=== PATIENT | male | born 1980 | race Two or more races ===

== ENCOUNTER → 2017-12-06 | Outpatient (CLI) | payer OTHER | END | disposition home or self-care (01) | LOC: US 07:15 | DX: K76.89 Other specified diseases of liver (principal) | CPT/HCPCS: 76700 ==

== ENCOUNTER 2018-07-30 11:29 | Emergency (ER) | payer OTHER ==
[~2018-07-30] VITALS: Ht 170.2 cm; Wt 83.0 kg
[2018-07-30] MEDS ORDERED: ACETAMINOPHEN 500 MG TABLET PO ONE (12:30)
[2018-07-30] MEDS ORDERED: ONDANSETRON ODT 4 MG TAB.RAPDIS. PO ONE (12:30)
[2018-07-30] MEDS ORDERED: IV NORMAL SALINE 1000ML BAG 1,000 ML IV ONE (12:30)
[2018-07-30 12:48] LABS: BILIRUBIN,URINE NEGATIVE (NEG); CLARITY,URINE CLEAR; COLOR,URINE YELLOW; NITRITE,URINE NEGATIVE (NEG); PROTEIN,URINE NEGATIVE (NEG-TRACE); UROBILINOGEN,URINE 0.2 mg/dL (0.2 mg/dL)
[2018-07-30 12:55] LABS: SQUAMOUS EPITHELIAL CELL,UR OCC /LPF
[2018-07-30 12:56] LABS: BACTERIA,URINE 0 /HPF (0-FEW); RBC,URINE 0 /HPF (0-2); WBC,URINE 0 /HPF (0-4)
[2018-07-30 13:00] LABS: BASO % 1 % (0-3); EOS % 0 % (0-3); HEMATOCRIT 43.5 % (39.0-53.0); HEMOGLOBIN 15.3 g/dL (13.0-17.5); LYMPH % 25 % (24-48); MEAN CORPUSCULAR HEMOGLOBIN 31 pg (25-35); MEAN CORPUSCULAR HGB CONC 35 g/dL (31-37); MEAN CORPUSCULAR VOLUME 87 fL (79-100); MONO # 0.9 x10^3/uL (0.0-1.1); MONO % 22 % (0-9); NEUT % 52 % (31-73); PLATELET COUNT 179 x10^3/uL (140-400); RED CELL DISTRIBUTION WIDTH 12.3 % (11.5-14.5); WHITE BLOOD COUNT 3.9 x10^3/uL (4.0-11.0)
[2018-07-30 13:12] LABS: CALCIUM 9.2 mg/dL (8.5-10.1); CREATININE 0.9 mg/dL (0.7-1.3); GFR 94.4; POTASSIUM 3.8 mmol/L (3.5-5.1)
[2018-07-30 13:18] LABS: ALBUMIN 4.1 g/dL (3.4-5.0); ALBUMIN/GLOBULIN RATIO 1.1 (1.0-1.7); TOTAL PROTEIN 7.9 g/dL (6.4-8.2)
--- NOTE | 2018-07-30 13:19 | RAD ---
Chest, PA and Lateral: Technique: PA and lateral views of the chest were obtained. History: Fever, cough. Comparison: None. Findings: The heart size grossly appears unremarkable.Mild prominent bibasilar interstitial lung markings. No evidence of pleural effusion. Mild degenerative changes thoracic spine. IMPRESSION: Mild prominent bibasilar interstitial lung markings could be mild bronchitis. Electronically signed by: Kane Martin MD (07/30/2018 1:15 PM) [id number]
[2018-07-30 13:27] LABS: % ATYL 9 % (0-0); % BANDS 12 % (0-9); % LYMPHS 19 % (24-48); % MONOS 22 % (0-10); % SEGS 38 % (35-66)
[2018-07-30 13:42] VITALS: BP 150/82
[2018-07-30] MEDS ORDERED: ACETAMINOPHEN 650 MG SUPP.RECT. PR ONE (13:45)
--- NOTE | 2018-07-30 13:59 | PHYS DOC ---
Past Medical History Past Medical History: Other Additional Past Medical Histor: "traumatic brain injury from " Alcohol Use: None Drug Use: None Adult General Chief Complaint Chief Complaint: NAUSEA/VOMITING/DIARRHA HPI HPI Patient is a 38 year old male who presents with decreased appetite, weakness, fever, vomiting since yesterday at 6 AM. Patient's caregiver stay the patient has not vomited today. Patient has a slight fever at 100.2 in the ED. Patient's last Tylenol was at 0700 today. Patient denies any throat pain and has not had any diarrhea. Patient has caregiver mother at bedside. Patient is nonverbal and is a red brain injury patient. Review of Systems Review of Systems Constitutional: Fever and chills [] Eyes: Denies change in visual acuity, redness, or eye pain [] HENT: Denies nasal congestion or sore throat [] Respiratory: Cough. Denies shortness of breath [] Cardiovascular: No additional information not addressed in HPI [] GI: Denies abdominal pain. Nausea and vomiting. Denies bloody stools or diarrhea [] : Denies dysuria or hematuria [] Musculoskeletal: Denies back pain or joint pain [] Integument: Denies rash or skin lesions [] Neurologic: Denies headache, focal weakness or sensory changes [] Endocrine: Denies polyuria or polydipsia [] All other systems were reviewed and found to be within normal limits, except as documented in this note. Current Medications Current Medications Current Medications Medications (Trade) Dose Ordered Sig/Jaycob Start Time Stop Time Status Last Admin Dose Admin Acetaminophen (Tylenol Supp) 650 mg 1X ONCE 07/30/18 13:45 07/30/18 13:46 DC 07/30/18 13:55 650 MG Acetaminophen (Tylenol) 1,000 mg 1X ONCE 07/30/18 12:30 07/30/18 12:32 DC 07/30/18 13:20 1,000 MG Ondansetron HCl (Zofran Odt) 4 mg 1X ONCE 07/30/18 12:30 07/30/18 12:32 DC 07/30/18 12:57 4 MG Sodium Chloride 1,000 ml @ 1,000 mls/hr 1X ONCE 07/30/18 12:30 07/30/18 13:29 DC 07/30/18 12:56 1,000 MLS/HR Allergies Allergies Allergies Coded Allergies Type Severity Reaction Last Updated Verified Penicillins Allergy Unknown unknown 07/30/18 Yes Physical Exam Physical Exam Constitutional: Well developed, well nourished, no acute distress, non-toxic appearance. [] HENT: Normocephalic, atraumatic, bilateral external ears normal, oropharynx moist, no oral exudates, nose normal. [] Eyes: PERRLA, EOMI, conjunctiva normal, no discharge. [] Neck: Normal range of motion, no tenderness, supple, no stridor. [] Cardiovascular:Heart rate regular rhythm, no murmur [] Lungs & Thorax: Bilateral breath sounds clear to auscultation [] Abdomen: Bowel sounds normal, soft, no tenderness, no masses, no pulsatile masses. [] Skin: Warm, dry, no erythema, no rash. [] Back: No tenderness, no CVA tenderness. [] Extremities: No tenderness, no cyanosis, no clubbing, ROM intact, no edema. [] Neurologic: Alert and oriented X 3, normal motor function, normal sensory function, no focal deficits noted. [] Psychologic: Affect normal, judgement normal, mood normal. [] Current Patient Data Vital Signs Vital Signs Date Time Temp Pulse Resp B/P (MAP) Pulse Ox O2 Delivery O2 Flow Rate FiO2 07/30/18 13:42 71 150/82 (104) 97 Room Air 07/30/18 12:12 16 07/30/18 11:30 100.3 100.3 Lab Values Laboratory Tests Test 07/30/18 12:30 07/30/18 12:49 Urine Collection Type Unknown Urine Color Yellow Urine Clarity Clear Urine pH 6.0 Urine Specific [place] <=1.005 Urine Protein Negative mg/dL (NEG-TRACE) Urine Glucose (UA) Negative mg/dL (NEG) Urine Ketones (Stick) Negative mg/dL (NEG) Urine Blood Negative (NEG) Urine Nitrite Negative (NEG) Urine Bilirubin Negative (NEG) Urine Urobilinogen Dipstick 0.2 mg/dL (0.2 mg/dL) Urine Leukocyte Esterase Negative (NEG) Urine RBC 0 /HPF (0-2) Urine WBC 0 /HPF (0-4) Urine Squamous Epithelial Cells Occ /LPF Urine Bacteria 0 /HPF (0-FEW) White Blood Count 3.9 x10^3/uL (4.0-11.0) L Red Blood Count 5.00 x10^6/uL (4.30-5.70) Hemoglobin 15.3 g/dL (13.0-17.5) Hematocrit 43.5 % (39.0-53.0) Mean Corpuscular Volume 87 fL (79-100) Mean Corpuscular Hemoglobin 31 pg (25-35) Mean Corpuscular Hemoglobin Concent 35 g/dL (31-37) Red Cell Distribution Width 12.3 % (11.5-14.5) Platelet Count 179 x10^3/uL (140-400) Neutrophils (%) (Auto) 52 % (31-73) Lymphocytes (%) (Auto) 25 % (24-48) Monocytes (%) (Auto) 22 % (0-9) H Eosinophils (%) (Auto) 0 % (0-3) Basophils (%) (Auto) 1 % (0-3) Neutrophils # (Auto) 2.0 x10^3uL (1.8-7.7) Lymphocytes # (Auto) 1.0 x10^3/uL (1.0-4.8) Monocytes # (Auto) 0.9 x10^3/uL (0.0-1.1) Eosinophils # (Auto) 0.0 x10^3/uL (0.0-0.7) Basophils # (Auto) 0.0 x10^3/uL (0.0-0.2) Segmented Neutrophils % 38 % (35-66) Band Neutrophils % 12 % (0-9) H Lymphocytes % 19 % (24-48) L Atypical Lymphocytes % (Manual) 9 % (0-0) H Monocytes % 22 % (0-10) H Platelet Estimate Adequate (ADEQUATE) Sodium Level 140 mmol/L (136-145) Potassium Level 3.8 mmol/L (3.5-5.1) Chloride Level 104 mmol/L (98-107) Carbon Dioxide Level 28 mmol/L (21-32) Anion Gap 8 (6-14) Blood Urea Nitrogen 17 mg/dL (8-26) Creatinine 0.9 mg/dL (0.7-1.3) Estimated GFR (Cockcroft-Gault) 94.4 BUN/Creatinine Ratio 19 (6-20) Glucose Level 107 mg/dL (70-99) H Calcium Level 9.2 mg/dL (8.5-10.1) Total Bilirubin 2.0 mg/dL (0.2-1.0) H Aspartate Amino Transferase (AST) 25 U/L (15-37) Alanine Aminotransferase (ALT) 56 U/L (16-63) Alkaline Phosphatase 82 U/L (46-116) Total Protein 7.9 g/dL (6.4-8.2) Albumin 4.1 g/dL (3.4-5.0) Albumin/Globulin Ratio 1.1 (1.0-1.7) Lipase 134 U/L (73-393) Laboratory Tests 07/30/18 12:49 Laboratory Tests 07/30/18 12:49 EKG EKG [] Radiology/Procedures Radiology/Procedures Chest xray[] Impressions: [facility] [address] [place] [address] IMAGING REPORT Signed PATIENT: JIM JOSEPH ACCOUNT: [id number] : 1980 LOCATION: ER AGE: 38 SEX: M EXAM STATUS: REG ER ORD. PHYSICIAN: PRICE FRANCISCO APRN REASON: fever PROCEDURE: CHEST PA & LATERAL Chest, PA and Lateral: Technique: PA and lateral views of the chest were obtained. History: Fever, cough. Comparison: None. Findings: The heart size grossly appears unremarkable.Mild prominent bibasilar interstitial lung markings. No evidence of pleural effusion. Mild degenerative changes thoracic spine. IMPRESSION: Mild prominent bibasilar interstitial lung markings could be mild bronchitis. Electronically signed by: Kane Martin MD (07/30/2018 1:15 PM) [id number] DICTATED and SIGNED BY: KANE MARTIN MD DATE: 07/30/18 1312 Course & Med Decision Making Course & Med Decision Making Patient is a 38 year old male who presents with decreased appetite, weakness, fever, vomiting since yesterday at 6 AM. Patient's caregiver stay the patient has not vomited today. Patient has a slight fever at 100.2 in the ED. Patient's last Tylenol was at 0700 today. Patient denies any throat pain and has not had any diarrhea. Patient has caregiver mother at bedside. Patient is nonverbal and is a red brain injury patient. Patient does not speak Upper Sorbian but follows commands that his caregivers give him. Patient's throat is pink without exudates. Bilateral ears tympanic are pearly white. Patient's skin is pink warm and dry. Lungs are clear to auscultation. Patient does not appear to have any tenderness with palpation. Patient and caregiver denies patient ever complaining of pain with urination. Mucus membranes are moist. Patient is alert. Patient is allergic to penicillins. Patient has not vomited yet today and has not vomited in the ED today. Patient is given a Liter of NS and Tylenol suppository. Chest Xray shows Mild prominent bibasilar interstitial lung markings could be mild bronchitis. Patient's white blood cell count is 3.9 and he does have Bandemia of 12. Patients urine shows no infection. I did have Dr Ceballos examine the patient. Patient will be sent home with Azithromycin 500mg daily for 5 days. Patient to follow up with his primary care as soon as possible. TAYLOR I did see and evaluate this patient patient low-grade fever chest x- ray possible bronchitis no consolidating pneumonia. Mild leukopenia with bandemia family thinks that he can take orals at home we will give antibiotics given the history of brain injury as well as the chest x-ray findings and low- grade fever with bandemia although urinalysis is negative and there are no other obvious signs of acute sepsis. [] Dragon Disclaimer Dragon Disclaimer This electronic medical record was generated, in whole or in part, using a voice recognition dictation system. Departure Departure Impression: Primary Impression: Bronchitis Disposition: 01 HOME, SELF-CARE Condition: STABLE Referrals: ALVAREZ GARCIA MD (PCP) Patient Instructions: Acute Bronchitis Scripts Azithromycin (AZITHROMYCIN ORAL SUSP) 200 Mg/5 Ml Susp.recon 500 MG PO DAILY for ANTI-BIOTIC for 5 Days, ML 0 Refills Prov: PRICE FRANCISCO APRN 07/30/18 PRICE FRANCISCO APRN Jul 30, 2018 13:59 PERCY CEBALLOS MD Jul 30, 2018 18:05
[2018-07-30] MEDS ORDERED: AZIT200S4 PO (14:05)
[2018-07-30 16:06] LABS: PLT ESTIMATE ADEQUATE (ADEQUATE)
== END 2018-07-30 14:26 | disposition home or self-care (01) ==
LOC: ER 11:29
DX: J40 Bronchitis, not specified as acute or chronic (principal); R50.9 Fever, unspecified; R11.10 Vomiting, unspecified; R53.1 Weakness; R63.0 Anorexia; Z88.0 Allergy status to penicillin
CPT/HCPCS: 36415; 71046; 80053; 81001; 83690; 85007; 85025; 96360; 99285; J7030; Q0162

== ENCOUNTER → 2020-06-09 | Outpatient (CLI) | payer OTHER ==
[~2020-06-09] MED LIST: AZIT200S4 PO
== END | disposition home or self-care (01) ==
LOC: LAB 09:32
PROVIDERS: ATTEND Internal Medicine
DX: Z01.818 Encounter for other preprocedural examination (principal); Z11.59 Encounter for screening for other viral diseases
CPT/HCPCS: U0003-CS

== ENCOUNTER → 2020-06-30 | Outpatient (CLI) | payer OTHER ==
[~2020-06-30] MED LIST changes: +GADOTERATE 7.5 MMOL/15ML VIAL. IVP ONE; +IV RINGERS,LACTATED 1000ML 1,000 ML IV SCH; +LIDOCAINE 2% PF 5 ML VIAL. ONE; +MIDAZOLAM HCL/PF 2 MG/2 ML VIAL. ONE; +PROPOFOL 10 MG/ML (20ML) VIAL. IV ONE; +fentaNYL PF VIAL 250 MCG/5 ML VIAL ONE
--- NOTE | 2020-06-30 16:38 | RAD ---
EXAM: Brain MRI with and without contrast. HISTORY: Gait instability. Urinary incontinence. TECHNIQUE: Multiplanar, multisequence magnetic resonance imaging of the brain was performed prior to and following the administration of intravenous contrast. COMPARISON: None. FINDINGS: There is no restricted diffusion to suggest acute or subacute infarction. There is no stability effect to suggest hemorrhage. There is no mass effect or midline shift. There is no hydrocephalus.. There is cerebellar atrophy. The orbits are unremarkable. There is mild paranasal sinus mucosal thickening. The mastoid air cells are clear. There are normal flow voids within the cerebral vessels. There is an incidental left choroid fissure cyst. There is no calvarial lesion. There is no suspicious enhancing lesion. IMPRESSION: 1. Cerebellar atrophy. 2. No acute intracranial finding. Electronically signed by: Enma Nieto MD (06/30/2020 4:36 PM) [facility]
[2020-06-30 17:05] VITALS: BP 112/67
== END | disposition home or self-care (01) ==
LOC: MRI 15:12
PROVIDERS: ATTEND Internal Medicine
DX: R26.9 Unspecified abnormalities of gait and mobility (principal); R32 Unspecified urinary incontinence; G32.81 Cerebellar ataxia in diseases classified elsewhere
CPT/HCPCS: 70553; 96361; 96374; 96375; A9575; J2250; J2704; J3010; J7120